=== PATIENT | female | born 1975 | race Caucasian/White ===

== ENCOUNTER 2017-02-05 11:30 | Outpatient (CLI) | payer OTHER | END 2017-02-05 11:31 | disposition home or self-care (01) | LOC: LAB.R 11:30 | PROVIDERS: ATTEND Family Medicine | DX: R35.0 Frequency of micturition (principal) | CPT/HCPCS: 87077; 87086 ==

== ENCOUNTER 2017-11-27 15:35 | Outpatient (CLI) | payer OTHER ==
--- NOTE | 2017-11-28 14:51 | Mammography Report ---
Procedure Date: 11/27/2017 Accession Number: [id number] / [id number] Procedure: [facility] - Screening Mammo Dig Bilat CPT Code: FULL RESULT: EXAM: Screening Mammo Dig Bilat DATE: 11/27/2017 3:52 PM CLINICAL HISTORY: 42-year-old for screening TECHNIQUE: Bilateral CC and MLO views were obtained. COMPARISON: 10/25/2015 FINDINGS: The breasts demonstrate scattered fibroglandular densities bilaterally. No suspicious masses, clustered microcalcifications, or regions of architectural distortion are identified. IMPRESSION: Negative examination RECOMMENDATION: Routine annual screening unless otherwise clinically indicated. BIRADS CATEGORY 1: Negative STANDARD QUALIFYING STATEMENTS: 1. This examination was reviewed with the aid of Computer-Aided Detection (CAD). 2. A negative or benign imaging report should not delay biopsy if clinically suspicious findings are present. Consider surgical consultation if warrented. More than 5% of cancers are not identified by imaging. 3. Dense breasts may obscure an underlying neoplasm.
== END 2017-11-27 15:36 | disposition home or self-care (01) ==
LOC: DI 15:35
PROVIDERS: ATTEND Registered Nurse
DX: Z12.31 Encounter for screening mammogram for malignant neoplasm of breast (principal)
CPT/HCPCS: 77067

== ENCOUNTER 2018-01-05 08:00 | Outpatient (CLI) | payer OTHER | END 2018-01-06 08:01 | disposition home or self-care (01) | LOC: LAB.R 08:00 | PROVIDERS: ATTEND Registered Nurse | DX: Z30.433 Encounter for removal and reinsertion of intrauterine contraceptive device (principal) | CPT/HCPCS: 87491; 87591 ==

== ENCOUNTER 2018-07-11 10:38 | Outpatient (CLI) | payer OTHER | END 2018-07-11 10:39 | disposition home or self-care (01) | LOC: LAB 10:38 | PROVIDERS: ATTEND Registered Nurse | DX: R63.5 Abnormal weight gain (principal) ==

== ENCOUNTER 2018-07-13 12:38 | Outpatient (CLI) | payer OTHER ==
[2018-07-13 13:34] LABS: BASOPHILS % (AUTO) 0.3 %; EOSINOPHILS # (AUTO) 0.2 10^3/uL (0.0-0.7); EOSINOPHILS % (AUTO) 2.5 %; LYMPHOCYTES # (AUTO) 2.1 10^3/uL (1.5-3.5); LYMPHOCYTES % (AUTO) 23.4 %; MEAN CORPUSCULAR HEMOGLOBIN 31.7 pg (27.0-31.0); MEAN CORPUSCULAR HGB CONC 33.4 g/dL (32.0-36.0); MEAN CORPUSCULAR VOLUME 94.9 fL (81.0-99.0); MEAN PLATELET VOLUME 7.7 fL (7.9-10.8); MONOCYTES # (AUTO) 0.4 10^3/uL (0.0-1.0); MONOCYTES % (AUTO) 4.8 %; NEUTROPHILS # (AUTO) 6.2 10^3/uL (1.5-6.6); PLT - PLATELET COUNT 284 10^3/uL (130-450); RED BLOOD COUNT 4.42 10^6/uL (4.20-5.40); RED CELL DISTRIBUTION WIDTH 13.1 % (12.0-15.0); WHITE BLOOD COUNT 9.1 x10^3/uL (4.8-10.8)
[2018-07-13 13:43] LABS: HB2 TOTAL 14.8 g/dL; HEMOGLOBIN A1C 0.43 g/dL; HEMOGLOBIN A1C % 4.8 % (4.6-6.2)
[2018-07-13 13:52] LABS: CHOLESTEROL 216 mg/dL; HDL CHOLESTEROL 72 mg/dL
[2018-07-13 14:11] LABS: LDL CHOLESTEROL,DIRECT 164 mg/dL; LDLD/HDL RATIO 2.3 (<4.4)
[2018-07-13 15:08] LABS: T4 (THYROXINE) 8.73 ug/dL (6.09-12.23)
[2018-07-13 15:11] LABS: THYROID STIMULATING HORMONE 1.99 uIU/mL (0.34-5.60)
[2018-07-13 15:17] LABS: PROLACTIN 5.48 ng/mL
[2018-07-13 15:38] LABS: FOLLICLE STIMULATING HORMONE 5.73 mIU/mL
[2018-07-13 15:39] LABS: LUTEINIZING HORMONE 1.64 mIU/mL
[2018-07-14 10:27] LABS: ESTRADIOL 223 pg/mL; PROGESTERONE <0.5 ng/mL
== END 2018-07-13 12:39 | disposition home or self-care (01) ==
LOC: LAB 12:38
PROVIDERS: ATTEND Registered Nurse
DX: R63.5 Abnormal weight gain (principal)
CPT/HCPCS: 36415; 80061; 81599; 82627; 82670; 82951; 83001; 83002; 83036; 83721; 84144; 84146; 84436; 84443; 85025

== ENCOUNTER 2021-10-15 11:24 | Outpatient (CLI) | payer BC ==
[2021-10-15 17:54] LABS: BASOPHILS % (AUTO) 0.5 %; EOSINOPHILS # (AUTO) 0.3 10^3/uL (0.0-0.7); EOSINOPHILS % (AUTO) 4.2 %; HCT - HEMATOCRIT 45.1 % (37.0-47.0); HGB - HEMOGLOBIN 14.8 g/dL (12.0-16.0); LYMPHOCYTES # (AUTO) 2.1 10^3/uL (1.5-3.5); LYMPHOCYTES % (AUTO) 34.3 %; MEAN CORPUSCULAR HEMOGLOBIN 32.2 pg (27.0-31.0); MEAN CORPUSCULAR HGB CONC 32.8 g/dL (32.0-36.0); MEAN PLATELET VOLUME 9.9 fL (7.9-10.8); MONOCYTES # (AUTO) 0.5 10^3/uL (0.0-1.0); MONOCYTES % (AUTO) 8.2 %; NEUTROPHILS # (AUTO) 3.1 10^3/uL (1.5-6.6); NEUTROPHILS % (AUTO) 52.5 %; PLT - PLATELET COUNT 285 10^3/uL (130-450); RED CELL DISTRIBUTION WIDTH 12.9 % (12.0-15.0)
[2021-10-15 18:22] LABS: ALBUMIN 4.5 g/dL (3.2-5.5); ALBUMIN/GLOBULIN RATIO 1.4 (1.0-2.2); ALKALINE PHOSPHATASE 51 IU/L (42-121); ALT ALANINE AMINOTRANSFERASE 76 IU/L (10-60); AST ASPARTATE AMINOTRANSFERASE 72 IU/L (10-42); BILIRUBIN,TOTAL 0.8 mg/dL (0.2-1.0); BUN - BLOOD UREA NITROGEN 11 mg/dL (6-20); CALCIUM 9.5 mg/dL (8.5-10.3); CARBON DIOXIDE - CO2 28 mmol/L (21-32); CHLORIDE 99 mmol/L (101-111); CHOL/HDL RATIO 3.1 (<4.4); CHOLESTEROL 253 mg/dL; CREATININE 0.7 mg/dL (0.4-1.0); GFR - MDRD 90 (>89); GLUCOSE 103 mg/dL (70-100); HDL CHOLESTEROL 81 mg/dL; LDL CHOLESTEROL,CALCULATED 161 mg/dL; POTASSIUM 4.4 mmol/L (3.5-5.0); SODIUM 137 mmol/L (135-145); THYROID STIMULATING HORMONE 1.4 uIU/mL (0.34-5.60); TOTAL PROTEIN 7.7 g/dL (6.7-8.2); TRIGLYCERIDES 53 mg/dL; VLDL CHOLESTEROL 11 mg/dL
[2021-10-15 18:50] LABS: FOLLICLE STIMULATING HORMONE 16.68 mIU/mL
== END 2021-10-15 11:25 | disposition home or self-care (01) ==
LOC: LAB.N 11:24
PROVIDERS: ATTEND Family Medicine
DX: Z00.00 Encounter for general adult medical examination without abnormal findings (principal); N92.6 Irregular menstruation, unspecified
CPT/HCPCS: 36415; 80053; 80061; 83001; 83721; 84443; 85025

== ENCOUNTER 2021-11-14 08:54 | Outpatient (CLI) | payer BC ==
--- NOTE | 2021-11-16 07:54 | Mammography Report ---
BILATERAL DIGITAL SCREENING MAMMOGRAM 3D/2D: 11/14/2021 CLINICAL: Routine screening. Comparison is made to exams dated: 11/27/2017 mammogram and 10/25/2015 mammogram - [facility]. There are scattered fibroglandular elements in both breasts. No significant masses, calcifications, or other findings are seen in either breast. There has been no significant interval change. IMPRESSION: NEGATIVE There is no mammographic evidence of malignancy. A 1 year screening mammogram is recommended. This exam was interpreted at Station ID: [id number]. NOTE: For mammograms, a report in lay terms will be sent to the patient. Approximately 15% of breast malignancies will not be visualized mammographically. In the management of a palpable breast mass, a negative mammogram must not discourage biopsy of a clinically suspicious lesion. Electronically Signed By: Ryan Root M.D. aty/penrad:11/14/2021 11:03:01 ACR BI-RADS Category 1: Negative 3341F PARENCHYMAL PATTERN: (A) - The breast(s) demonstrate(s) scattered fibroglandular densities. BI-RADS CATEGORY: (1) - 1 RECOMMENDATION: (ANNUAL) - Recommend routine annual screening mammography. [id number] 1 year screening LATERALITY: (B)
== END 2021-11-14 08:55 | disposition home or self-care (01) ==
LOC: DI.S 08:54
DX: Z12.31 Encounter for screening mammogram for malignant neoplasm of breast (principal)

== ENCOUNTER 2022-09-12 12:18 | Outpatient (CLI) | payer BC ==
--- NOTE | 2022-09-12 13:16 | XRAY Report ---
PROCEDURE: Ankle 3 View RT INDICATIONS: ANKLE PAIN,RIGHT TECHNIQUE: 3 views of the ankle were acquired. COMPARISON: None FINDINGS: Bones: No fractures or dislocations. Ankle mortise is normally aligned. No suspicious bony lesions . No significant degenerative changes are seen. There is a small calcaneal heel spur at insertion of th e plantar fascia. Soft tissues: No tibiotalar joint effusion. Achilles tendon appears normal. IMPRESSION: Small calcaneal heel spur at the insertion of the plantar fascia with an otherwise negat maria a right ankle. Reviewed by: Marv Jane MD on 09/12/2022 1:14 PM PDT Approved by: Marv Jane MD on 09/12/2022 1:14 PM PDT Station ID: [id number]
== END 2022-09-12 12:19 | disposition home or self-care (01) ==
LOC: DI 12:18
PROVIDERS: ATTEND Physician Assistant
DX: M77.31 Calcaneal spur, right foot (principal)

== ENCOUNTER 2023-02-04 08:00 | Outpatient (CLI) | payer BC ==
--- NOTE | 2023-02-04 14:49 | XRAY Report ---
PROCEDURE: Knee 4 View RT INDICATIONS: RIGHT KNEE PAIN TECHNIQUE: 4 views of the right knee(s) were acquired. COMPARISON: 03/05/2015 FINDINGS: Bones: Mild degenerative changes, with osteophytic lipping and medial joint space narrowing. Relativ e symmetry to the left side seen on frontal view. No displaced fracture or dislocation. Soft tissues: Trace knee effusion. IMPRESSION: Mild degenerative changes. Trace effusion. If there is high concern for further derangement, consider MRI evaluation. Reviewed by: Rayshawn Uriarte MD on 02/04/2023 2:48 PM PDT Approved by: Rayshawn Uriarte MD on 02/04/2023 2:48 PM PDT Station ID: [id number]
== END 2023-02-04 23:59 | disposition home or self-care (01) ==
LOC: DI.WOS 08:00
PROVIDERS: ATTEND Orthopaedic Surgery
DX: M17.11 Unilateral primary osteoarthritis, right knee (principal); M25.461 Effusion, right knee

== ENCOUNTER 2023-07-15 10:57 | Outpatient (CLI) | payer BC ==
[2023-07-15 11:12] LABS: BASOPHILS # (AUTO) 0.1 10^3/uL (0.0-0.1); BASOPHILS % (AUTO) 0.8 %; EOSINOPHILS # (AUTO) 0.4 10^3/uL (0.0-0.7); HCT - HEMATOCRIT 44.9 % (37.0-47.0); HGB - HEMOGLOBIN 14.2 g/dL (12.0-16.0); LYMPHOCYTES # (AUTO) 2.5 10^3/uL (1.5-3.5); LYMPHOCYTES % (AUTO) 34.8 %; MEAN CORPUSCULAR HEMOGLOBIN 30.9 pg (27.0-31.0); MEAN CORPUSCULAR HGB CONC 31.6 g/dL (32.0-36.0); MEAN CORPUSCULAR VOLUME 97.6 fL (81.0-99.0); MONOCYTES # (AUTO) 0.6 10^3/uL (0.0-1.0); MONOCYTES % (AUTO) 7.6 %; NEUTROPHILS # (AUTO) 3.7 10^3/uL (1.5-6.6); NEUTROPHILS % (AUTO) 51.2 %; PLT - PLATELET COUNT 276 10^3/uL (130-450); RED CELL DISTRIBUTION WIDTH 13.2 % (12.0-15.0); WHITE BLOOD COUNT 7.2 x10^3/uL (4.8-10.8)
[2023-07-15 11:30] LABS: ALBUMIN 4.4 g/dL (3.2-5.5); ALBUMIN/GLOBULIN RATIO 1.5 (1.0-2.2); ALKALINE PHOSPHATASE 72 IU/L (42-121); ALT ALANINE AMINOTRANSFERASE 97 IU/L (10-60); AST ASPARTATE AMINOTRANSFERASE 61 IU/L (10-42); BILIRUBIN,TOTAL 0.6 mg/dL (0.2-1.0); BUN - BLOOD UREA NITROGEN 12 mg/dL (6-20); CALCIUM 9.4 mg/dL (8.5-10.3); CARBON DIOXIDE - CO2 28 mmol/L (21-32); CHLORIDE 103 mmol/L (101-111); CHOL/HDL RATIO 3.7 (<4.4); CHOLESTEROL 241 mg/dL; CREATININE 0.8 mg/dL (0.6-1.3); CRP - C-REACTIVE PROTEIN < 0.5 mg/dL (<0.5); GFR - MDRD 76 (>89); GLUCOSE 108 mg/dL (74-104); HDL CHOLESTEROL 65 mg/dL; LDL CHOLESTEROL,CALCULATED 159 mg/dL; LDL/HDL RATIO 2.4 (<4.4); POTASSIUM 3.9 mmol/L (3.5-4.5); SODIUM 137 mmol/L (135-145); TOTAL PROTEIN 7.3 g/dL (6.4-8.9); TRIGLYCERIDES 84 mg/dL (48-352); URIC ACID 5.4 mg/dL (2.3-6.6); VLDL CHOLESTEROL 17 mg/dL
[2023-07-15 11:42] LABS: THYROID STIMULATING HORMONE 1.29 uIU/mL (0.34-5.60)
[2023-07-15 13:52] LABS: RHEUMATOID FACTOR NEGATIVE (Negative)
== END 2023-07-15 10:58 | disposition home or self-care (01) ==
LOC: LAB 10:57
PROVIDERS: ATTEND Physician Assistant
DX: M25.50 Pain in unspecified joint (principal); R74.8 Abnormal levels of other serum enzymes; Z13.220 Encounter for screening for lipoid disorders; F41.9 Anxiety disorder, unspecified; F32.A Depression, unspecified; F17.200 Nicotine dependence, unspecified, uncomplicated
CPT/HCPCS: 36415; 80053; 80061; 83721; 84443; 84550; 85025; 85651; 86140; 86200; 86430

== ENCOUNTER 2023-08-13 11:53 | Outpatient (CLI) | payer BC ==
--- NOTE | 2023-08-13 14:56 | XRAY Report ---
PROCEDURE: Wrist 3+V LT INDICATIONS: LEFT WRIST PAIN TECHNIQUE: 3 views of the wrist were acquired. COMPARISON: None. FINDINGS: Bones: No fractures or dislocations. No suspicious bony lesions. Soft tissues: No suspicious soft tissue calcifications or masses. IMPRESSION: No acute bony abnormality. Reviewed by: Esme Marroquin MD on 08/13/2023 2:54 PM PST Approved by: Esme Marroquin MD on 08/13/2023 2:54 PM PST Station ID: [id number]
--- NOTE | 2023-08-13 18:18 | XRAY Report ---
PROCEDURE: Thoracic Spine 3V INDICATIONS: NECK AND BACK PAIN TECHNIQUE: 3 views of the thoracic spine were acquired. COMPARISON: None. FINDINGS: Bones: No fractures or dislocations. No suspicious bony lesions. 12 pairs of ribs are noted, and a ppear intact where visualized. Slight levoconvex curvature of the thoracic spine centered at T11. Mi ld multilevel degenerative changes with osteophytosis and disc height loss. Soft tissues: No paravertebral stripe thickening. Visualized lungs are clear. Normal heart size. No rmal mediastinal contour. IMPRESSION: 1.No acute bony abnormality. No significant degenerative change. 2.Mild multilevel degenerative changes of the spine. Reviewed by: Kishore Thorpe MD on 08/13/2023 6:17 PM PST Approved by: Kishore Thorpe MD on 08/13/2023 6:17 PM PST Station ID: [id number]
== END 2023-08-13 11:54 | disposition home or self-care (01) ==
LOC: DI 11:53
PROVIDERS: ATTEND Nurse Practitioner
DX: M25.532 Pain in left wrist (principal); M47.814 Spondylosis without myelopathy or radiculopathy, thoracic region